=== PATIENT | male | born 1980 | race African-American/Black ===

== ENCOUNTER 2021-12-19 09:02 | Emergency (ER) | payer MEDICAID ==
[~2021-12-19] VITALS: Ht 198.1 cm; Wt 96.0 kg
[2021-12-19 09:20] VITALS: BP 165/97
== END 2021-12-19 11:20 | disposition home or self-care (01) ==
LOC: ER 09:14
DX: D17.1 Benign lipomatous neoplasm of skin and subcutaneous tissue of trunk (principal); R03.0 Elevated blood-pressure reading, without diagnosis of hypertension
CPT/HCPCS: 71101; 99283